=== PATIENT | female | born 1985 | race Asian ===

== ENCOUNTER 2017-10-28 01:07 | Outpatient (CLI) | payer OTHER ==
[~2017-10-28] VITALS: Ht 162.6 cm; Wt 60.9 kg
[2017-10-28] MEDS ORDERED: ZOLPIDEM 5MG TABLET ONE (02:55)
[2017-10-28] MEDS ORDERED: ZOLPIDEM 5MG TABLET PO ONE (03:00)
[2017-10-30] MEDS ORDERED: IBUP-1222 PO (12:32)
[2017-10-30] MEDS ORDERED: HYDR-3240 PO (12:33)
== END 2017-10-28 02:58 | disposition home or self-care (01) ==
LOC: LDOP 01:07
PROVIDERS: ATTEND Obstetrics & Gynecology
DX: O42.90 Premature rupture of membranes, unspecified as to length of time between rupture and onset of labor, unspecified weeks of gestation (principal); O26.899 Other specified pregnancy related conditions, unspecified trimester; Z3A.00 Weeks of gestation of pregnancy not specified
CPT/HCPCS: 59025; 89060; 99201; G0463; Q0114